=== PATIENT | male | born 1960 | race African-American/Black ===

== ENCOUNTER 2020-01-09 22:28 | Emergency (ER) | payer MEDICAID ==
[~2020-01-09] VITALS: Ht 182.9 cm; Wt 130.0 kg
[2020-01-09 22:58] VITALS: BP 157/86
== END 2020-01-10 00:28 | disposition home or self-care (01) ==
LOC: ED 01-10 00:26
DX: S93.402A Sprain of unspecified ligament of left ankle, initial encounter (principal); X50.1XXA Overexertion from prolonged static or awkward postures, initial encounter; Y93.89 Activity, other specified; Y92.009 Unspecified place in unspecified non-institutional (private) residence as the place of occurrence of the external cause; Y99.8 Other external cause status; Z72.9 Problem related to lifestyle, unspecified
CPT/HCPCS: 99284